=== PATIENT | female | born 2005 | race African-American/Black ===

== ENCOUNTER 2024-11-16 05:36 | Emergency (ER) | payer MEDICAID, SELFPAY ==
--- NOTE | ~2024-11-16 | XR_ITS ---
XR chest 2V Ordering provider: Santos Mckeon MD History: 18 years Female with . sob/ CHEST PAIN. . Comparison: None. FINDINGS: MEDIASTINUM: The cardiac silhouette is not enlarged. LUNGS: No infiltrates, effusions or pneumothorax. OTHER: No free air under the diaphragm. IMPRESSION: No acute cardiopulmonary pathology Reviewed, dictated and finalized at location A.
[2024-11-16 05:40] VITALS: BP 155/99; PULSE 62; RESP 17; TEMP 36.6; O2SAT 100
[2024-11-16 05:46] VITALS: O2SAT 99
--- NOTE | 2024-11-16 05:47 | ECG_ITS ---
Test Date: 2024-11-16 05:49:25 Measurements Intervals [place] Rate: 54 P: 73 LA: 147 QRS: 87 QRSD: 83 T: 65 QT: 390 QTc: 372 Interpretive Statements SINUS BRADYCARDIA BASELINE ARTIFACT- I, II, AVR, AVL, AVF, V1-V6 BORDERLINE ECG No previous ECG available for comparison Electronically Signed On 11-16-2024 07:46:40 CDT by Oscar Cardona D.O.
[2024-11-16 05:55] LABS: Basophils Absolute Auto 0.1 K/mm3 (0.0-0.1); Basophils Percent Auto 0.6 % (0.2-1.2); Eosinophils Absolute Auto 0.1 K/mm3 (0-0.3); Eosinophils Percent Auto 1.4 % (0-4.4); Hematocrit 39.3 % (37.0-47.0); Hemoglobin 13.3 g/dL (12.0-15.0); Immature Granulocyte Absolute 0.02 K/mm3 (0.00-0.031); Immature Granulocyte Percent A 0.2 % (0-0.5); Lymphocytes Absolute Auto 3.49 K/mm3 (0.9-3.2); Lymphocytes Percent Auto 41.4 % (18.3-44.2); Mean Corpuscular HGB Conc 33.8 g/dl (32-36); Mean Corpuscular Hemoglobin 26.4 pg (26-34); Mean Corpuscular Volume 78.1 fl (80-100); Mean Platelet Volume 9.6 fl (7.4-10.4); Monocytes Absolute Auto 0.9 K/mm3 (0.1-0.6); Monocytes Percent Auto 10.9 % (2.6-8.5); Neutrophils Absolute Auto 3.8 K/mm3 (1.3-6.7); Neutrophils Percent Auto 45.5 % (45.5-73.1); Platelet Count Result 284 k/mm3 (150-375); Red Blood Count 5.03 M/mm3 (4.2-5.4); Red Cell Distribution Width 14.8 % (11.5-14.5); White Blood Count 8.4 K/mm3 (4.5-10.0)
[2024-11-16 06:04] LABS: Alanine Aminotransferase 24 U/L (6-35); Albumin Level 4.4 g/dL (3.7-5.6); Alkaline Phosphatase 101 U/L (45-116); Anion Gap 9 mmol/L (4-12); Aspartate Amino Transferase 30 U/L (14-36); Bilirubin,Total 0.3 mg/dL (0.2-1.3); Blood Urea Nitrogen 8 mg/dL (8-21); Carbon Dioxide 25 mmol/L (22-30); Chloride 106 mmol/L (98-107); Estimated CRCL calculation 104 ml/min; Estimated Glomerular Filt Rate > 60; Glucose 91 mg/dL (65-110); Potassium 3.8 mmol/L (3.4-5.0); Sodium 140 mmol/L (134-143)
[2024-11-16 06:14] VITALS: BP 122/84; PULSE 54; RESP 16; O2SAT 100
--- OUTSIDE RECORDS SUMMARY | 2024-11-16 06:39 | XMS_ITS | Clinical Summary ---
Author Organization [facility] Address [address] [place] [address] Care Team Providers Care Cnc Maintenance Mechanic Name Role Phone Unavailable Primary Care Provider Unavailabl e Social History Tobacco Use Types Packs/Day Years Used Date Smoking Tobacco: Never Assessed Comments Unknown Sex and Gender Information Value Date Recorded Sex Assigned at Not on file Legal Sex Female 11:36 AM STITCH RUBBER Gender Identity Not on file Sexual Orientation Not on file Plan of Treatment Health Maintenance Due Date Last Done Comments Hepatitis C Virus (HCV) Screening 2004 Meningococcal B Immunization (2 of 2 - Bexsero SCDM 2-dose series) 07/27/2021 01/25/2021 Influenza Immunization (#1) 2024 07/05/2016 SARS-COV-2 Immunization ( season) 2024 02/02/2021, 01/12/2021 Respiratory Syncytial Virus (RSV) Immunization (Adult) (1 - 1-dose 75+ series) 12/13/2079 Hepatitis B Immunization Completed 005, 04/21/2005, 02/17/2005 Polio (IPV) Immunization Discontinued 005, 04/21/2005, 02/17/2005 Measles Mumps Rubella (MMR) Immunization Discontinued 12/14/2009, 03/12/2006 DTaP/Tdap/Td Immunization Discontinued 2015, 12/14/2009, 06/11/2006, Additional history exists Pneumococcal Immunization Combined Completed 05/01/2016, 12/10/2006, 05/11/2006, Additional history exists TdaP Immunization Completed 05/01/2016 Varicella Immunization Discontinued 05/01/2016, 2006 Human Papillomavirus (HPV) Immunization Completed 11/01/2016, 07/05/2016, 05/01/2016 Hepatitis A Immunization Discontinued 02/25/2019, 04/07 Meningococcal Immunization (ACWY) Completed 01/25/2021, 05/01/2016 Rotavirus Immunization Aged Out No lo nger eligible based on patient's age to complete this topic
--- OUTSIDE RECORDS SUMMARY | 2024-11-16 06:39 | XMS_ITS | Clinical Summary ---
Author Organization [facility] Address [address] [address] Care Team Providers Care Aeronautical Design Engineer Name Role Phone Bettina Cabrales MD Primary Care Provider [phone] Source Comments [facility],non-owned Affiliates and Associated Physician Practices is amultiple site organization consisting of ambulatory clinics and hospital sitesin [place], [place], [place] and [place]. This disclosure is being madepursuant to the Care Everywhere program and may not contain all information available regarding this patient. Last updated 18.[facility] Allergies No known active allergies Medications * Be aware that medications may not be up to date on this document. Alwaysverify current medications with the patient. medroxyPROGESTER one (Provera) 10 MG tablet Take 1 (one) tablet by mouth once daily for 7 days 07/05/2021 Active Active Problems Problem Noted Date Diagnosed Date Closed fracture of left radius and ulna 04/22/20 13 Immunizations Immunization Administration Dates Next Due Enel OGK-5 primary monoval ent 12+ yr 0.3mL Purple cap 02/02/2021,01/12/2021 DTaP VACCINE IM (6wk-6yrs) 12/14/2009,,06/23/2005,04/21,02/17/2005 HEP A PEDS 2 DOSE 02/25/2019,05/01/2016 HEP B VACCINE, PED/ADOL 06/23/2005,04/21/2005, HIB-HAEMOPHILUS INFLUENZAE B CONJUGATE VACCINE 06/11/2006,12/11/2005,04/21/2005,02/17 HIB-PRP-T 4 DOSE 11/01/2016 Human Papilloma Virus Nineva lent Vaccine 11/01/2016,07/05/2016,05/01/2016 INFLUENZA VACCINE, QUADR. (F LUZONE; FLULAVAL; FLUARIX; AFLURIA QUADRIVALENT; 6MO+), 0.5 ML (IIV4) 04/26/2023,06/06/2021,07/05/2016 MENINGOCOCCAL ACWY (MCV4P) VAC IM 01/25/2021, MMR 12/14/2009,03/12/2006 Meningococcal B Recombinant 2 Dose, IM 3,01/25/2021 PNEUMOCOCCAL PCV7 CONJ, PEDS 05/11/2006,03/12/20,02/17/2005 POLIO IPV 06/23/2005,04/21/2005,02/17/2005 POLIO,HISTORIC VACCINE 12/14/2009 Pneumococcal Pcv13 Conj 05/01/2016,12/10/2006 TDAP (7yrs+) 05/01/2016 VARICELLA 05/01/2016,12/10/2006 Family History Medical History Relation Name Comments High Cholesterol Father Diabetes; unknown type Maternal Grandfather None Known Mother Diabetes; unknown type Paternal Grandfather Relation Name Status Comments Father Maternal Grandfather Mother Paternal Grandfather Social History Tobacco Use Types Packs/Day Years Used Date Smoking Tobacco: Never Tobacco Cessation:Counseling Given: Not Answered Alcohol Use Standard Drinks/Week Comments No 0 (1 standard drink = 0.6 oz pur e alcohol) PHQ-2 Answer Date Recorded Patient Health Questionnaire-2 Score 2 09/14/2023 Comments No Sex and Gender Information Value Date Recorded Sex Assigned at Not on file Legal Sex Female 3:10 PM CDT Gender Identity Not on file Sexual Orientation Not on file Last Filed Vital Signs Vital Sign Reading Time Taken Comments Blood Pressure 118/64 04/26/2023 2:38 PM CDT Pulse 116 04/07/2013 1:00 AM CDT Temperature 36.4 C (97.5 F) 09/14/2023 9:36 AM PARKING LOT SIGNALER Respiratory Rate 19 04/07/2013 1:00 AM CDT Oxygen Saturation 99% 04/07/2013 1:00 AM CDT Inhaled Oxygen Concentration - - Weight 106.6 kg (235 lb) 09/14/2023 9:36 AM PARKING LOT SIGNALER Height 161.3 cm (5' 3.5 ) 04/26/2023 2:38 PM CDT Body Mass Index 40.98 04/26/2023 2:38 PM CDT Body Mass Index Percentile 99.15% 09/14/2023 9:3 6 AM PARKING LOT SIGNALER Growth Chart: [facility] (Girls, 2- 20 Years) Plan of Treatment Health Maintenance Due Date Last Done Comments HIV SCREENING 12/13/2019 CHLAMYDIA/GONORRHEA SCREENING 2020 HEPATITIS C SCREENING 12/08/2022 COVID-19 VACCINE (2023-2 5 season) 2024 08/19/2021, 02/02/2021, 01/12/2021 DEPRESSION SCREENING 08/06/2024 09/14/2023, 04/26/20 23 INFLUENZA VACCINE (Season Ended) 2025 04/26/2023, 06/06/2021, 07/05/2016 DTAP/TDAP/TD VACCINES (7 - T d or Tdap) 05/01/2026 05/01/2016, 12/14/2009, 06/11/2006, Additional history exists ZOSTER VACCINE (1 of 2) 2054 HEPATITIS B VACCINE Completed 06/23/2005, 04/21/2005, 02/17/2005 PNEUMOCOCCAL VACCINE Completed 05/01/2016, 12/10/2006, 05/11/2006, Additional history exists HIB VACCINE Completed 11/01/2016, 01/2006, 12/11/2005, Additional history exists HPV VACCINE Completed 11/01/2016, 06/08, 05/01/2016 MENINGOCOCCAL GROUPS A/C/Y/W VACCINE Completed 01/25/2021, 05/01/2016 MENINGOCOCCAL (Group B) VACC INE SHARED DECISION-MAKING Completed 04/26/2023, 01/25/2021 Goals Goal Patient Goal Type Associated Problems Recent Progress Patient-Stated? Author Use safety retraint in car Lifestyle On track( 021 2:40 PM CDT) Elli Donovan MA Insurance [facility] Care Teams Aeronautical Design Engineer Relationship Specialty Start Date End Date Bettina Cabrales MD [address] [place] [address] PCP - General Pediatrics 06/06/21
--- OUTSIDE RECORDS SUMMARY | 2024-11-16 06:39 | XMS_ITS | Clinical Summary ---
Author Organization [facility] Address [address] [place] [address] Care Team Providers Care Lead Fire Protection Engineer Name Role Phone Bettina Cabrales MD Primary Care Provider Benjamin Jewell MD Unavailable [phone] Brinda Cook PT Unavailable Unavailable Allergies No known active allergies Medications oxyCODONE (ROXICODONE) 5 mg immediate release tabletIndicatio ns:Pain Take 1 tablet (5 mg total) by mouth every 4 (four) hours as needed for pain 20 tablet 3 Active Additional Information Patient not taking.Reported on 10/11/2022 HYDROcodone-onelia taminophen (NORCO) 5-325 mg per tabletIndicatio ns:Pain Take 1-2 tablets by mouth every 4 (four) hours as needed for pain 20 tablet 3 Active Additional Information Patient not taking.Reported on 10/11/2022 ketorolac (TORADOL) 10 mg tabletIndicatio ns:Postoperativ e Acute Pain Take 1 tablet (10 mg total) by mouth every 6 (six) hours DO NOT TAKE or start ASPIRIN UNTIL DAY AFTER LAST DOSE OF TORADOL 12 tablet 3 Active Additional Information Patient not taking.Reported on 10/11/2022 senna (SENOKOT) 8.6 mg tablet Take 1 tablet by mouth 2 (two) times a day 60 tablet 3 Active aspirin 81 mg chewable tablet Take 1 tablet (81 mg total) by mouth 2 (two) times a day DO NOT take or start Aspirin until the next day after last dose of Toradol. (Post-operative DVT prophylaxis) 60 tablet 3 Active ondansetron (ZOFRAN) 4 mg tablet 2 Active Active Problems Problem Noted Date Diagnosed Date Sprain of anterior cruciate ligament of right kn ee 07/05/2022 Overview (07/05/2022): Added automatically from request for surgery [id number] Closed fracture of left radius and ulna 04/22/20 13 Immunizations Immunization Administration Dates Next Due DTaP 12/14/2009, 6,06/23/2005,04/21,02/17/2005 DTaP, Unspecified 12/14/2009 HPV9 11/01/2016,07/05/2016,05/01/2016 Hep A, Pediatric 02/25/2019,05/01/2016 Hep B, Adolescent or Pediatric 06/23/2005,2004,02/17/2005 HiB 06/11/2006, 6,04/21/2005,02/17 Hib (HbOC) 06/11/2006, 6,04/21/2005,02/17 Hib (PRP-T) 11/01/2016 IPV 06/23/2005,04/21/2005,02/17/2005 Influenza, Quadrivalent, Spl it, Preservative Free, Intramuscular 06/06/2021,07/05/2016 MMR 12/14/2009,03/12/2006 Meningococcal B, OMV (Bexsero) 01/25/2021 Meningococcal MCV4P (Menactra) 01/25/2021,2015 Pneumococcal Conjugate 7-Valent 05/11/2006,03/12,02/17/2005 Pneumococcal Conjugate PCV 13 05/01/2016, 007 Polio, Unspecified 12/14/2009 Tdap 05/01/2016 Varicella 05/01/2016,12/10/2006 Medical History Medical History Date Comments Obesity (BMI 30-39.9) Social History Tobacco Use Types Packs/Day Years Used Date Smoking Tobacco: Never Smokeless Tobacco: Never Tobacco Cessation:Counseling Given: Not Answered Personal Safety Answer Date Recorded Getting School Help Needed Denies 07/17 Comments Unknown Sex and Gender Information Value Date Recorded Sex Assigned at Not on file Legal Sex Female 7:31 PM CARPENTRY INSTRUCTOR Gender Identity Female 08/16/2022 7:07 AM CARPENTRY INSTRUCTOR Sexual Orientation Straight 08/16/2022 7: 07 AM CARPENTRY INSTRUCTOR Obstetrics History Growth Chart Information Age Height Weight Nixnag-sps-nfvu th Percentile BMI Percentile Head Circum Head Circum Percentile Date 16 years 162.5 cm (5' 3.98 ) 100.9 kg (222 lb 7.1 oz) 98.76%* 2022 16 years 163.8 cm (5' 4.5 ) 98 kg (216 lb 1.6 oz) 98.24%* 2021 * [facility] (Girls, 2-20 Years) Last Filed Vital Signs Vital Sign Reading Time Taken Comments Blood Pressure 147/93 08/14/2022 2:10 PM CARPENTRY INSTRUCTOR Pulse 103 08/14/2022 2:10 PM CARPENTRY INSTRUCTOR Temperature 36.7 C (98.1 F) 08/14/2022 1:06 PM CARPENTRY INSTRUCTOR Respiratory Rate 17 08/14/2022 2:10 PM CARPENTRY INSTRUCTOR Oxygen Saturation 99% 08/14/2022 2:10 PM CARPENTRY INSTRUCTOR Inhaled Oxygen Concentration - - Weight 100.9 kg (222 lb 7.1 oz) 08/14/2022 9:52 AM CARPENTRY INSTRUCTOR Height 162.5 cm (5' 3.98 ) 08/14/2022 9:52 AM CS T Body Mass Index 38.21 08/14/2022 9:52 AM CARPENTRY INSTRUCTOR Body Mass Index Percentile 98.76% 08/14/2022 9:5 2 AM CARPENTRY INSTRUCTOR Growth Chart: [facility] (Girls, 2- 20 Years) Plan of Treatment Health Maintenance Due Date Last Done Comments Depression Screening 2004 Hepatitis C Screening 2004 Regular Well Visit/Exam 18-64 2022 Covid-19 Vaccine (2023-2 5 season) 2024 08/19/2021, 02/02/2021, 01/12/2021 Influenza Vaccine (#1) 2024 3, 06/06/2021, 07/05/2016 DTaP/Tdap/Td Vaccine (7 - Td or Tdap) 05/01/2026 05/01/2016, 12/14/2009, 12/14/2009, Additional history exists Hepatitis B Screening Completed 06/23/2005 , 04/21/2005, 02/17/2005 Pneumococcal vaccine <65 Completed 016, 12/10/2006, 05/11/2006, Additional history exists Varicella Vaccines Completed 05/01/2016, 12/10/2006 HPV Vaccines Completed 11/01/2016, 06/08, 05/01/2016 Meningococcal Vaccine Completed 01/25/2021, 016 Meningococcal B Vaccine Completed 04/26/2023, 01/25 Medical Devices Implanted Type Area Market Gardener Device Identifier Shelf Expiration Date Model / Serial / Lot [employer] Endoscopy Screw 20mm 9mm 1.5mm Intfr Ti Cnn Rnd Hd Sft Thrd Crkscr Tip Softsilk Acl Pcl Strl [id number] - [id number] Implanted:Qty: 1 on 08/14/2022 by Benjamin Jewell MD at [facility] Right: Knee [employer] End[employer] 12/15/2026 [id number] / / [id number] [employer] End[employer] Softsilk 8mm 1.5mm 20mm Cannulated Round Acl Pcl Screw [id number] - [id number] Implanted:Qty: 1 on 08/14/2022 by Benjamin Jewell MD at [facility] Right: Knee [employer] 05/06/2027 [id number] / / [id number] Explanted Type Area Market Gardener Device Identifier Shelf Expiration Date Model / Serial / Lot [employer] Hua .062in 9in Trocar Point One End Orthopedic Wire [id number] - [id number] Explanted:Qty: 1 on 08/14/2022 by Benjamin Jewell MD at [facility] Right: Knee [employer] [id number] S / / Insurance [facility] Care Teams Lead Fire Protection Engineer Relationship Specialty Start Date End Date Bettina Cabrales MD [address] [facility] [address] [place] [address] PCP - General Pediatrics 06/19/22 Benjamin Jewell MD [address] [address] Surgeon Pediatric Orthopedic Surgery 08/14/22 Brinda Cook, PT Physical Therapist Physical Therapy 02/28/23
--- OUTSIDE RECORDS SUMMARY | 2024-11-16 06:39 | XMS_ITS | Data Portability ---
Author Organization [facility] [place] Address [address] [place] [address] Care Team Providers Care Appliance Repair Technician Name Role Phone ERLINDA ORNELAS Primary Care Provider [phone] Assessment Encounter Date Assessment Date Assessment LastModified by Organization Details LastModified Time 08/30/2021 08/30/2021 doing well so far. discussed adjustment period and irregular bleeding. WWE due Nov Not available 08/30/2021 16:36:47 Plan of Treatment Reminders Order Date Submit Date Provider Last Modified By Organization Details Last Modified Time Details Appointments MED CHECK 2024 09:15A Julius IYN MD Not available Not available Not available Lab test, urine 2024 025 [email or web address] [address], [address], [place], [address], 10/24/2024 11:02:14 test, urine 2022 023 [address], [address], [place], [address], 07/27/2023 10:19:33 17-hydrox [email or web address] jackson, serum 2022 023 [facility] (Lab), [address] [facility] [address], [place], [address], 09/19/2023 22:56:20 dhea-sulf ate, serum 2022 023 [facility] (Lab), [address], [place], [address], 09/19/2023 22:56:16 estradiol , serum 2022 023 [facility] (Lab), [address], [place], [address], 09/19/2023 22:56:16 FSH (follicle -stimulat ing hormone), serum 2022 023 [facility] (Lab), [address], [place], [address], 09/19/2023 22:56:18 HbA1c (hemoglob in A1c), blood 2022 023 [facility] (Lab), [address], [place], [address], 09/19/2023 22:56:19 lh (luteiniz ing hormone), serum 2022 023 [facility] (Lab), [address] [place], [address], 09/19/2023 22:56:17 progester one, serum 2022 023 [facility] (Lab), [address] [place], [address], 09/19/2023 22:56:17 prolactin , serum 2022 023 [facility] (Lab), [address] [place], [address], 09/19/2023 22:56:17 shbg (sex hormone-b inding globulin) , serum 2022 023 [facility] (Lab), [address] [place], [address], 09/19/2023 22:56:19 TSH, serum or plasma 2022 023 [facility] (Lab), [address], [place], [address], 09/19/2023 22:56:18 testoster one free/test osterone total, ratio, serum 2022 023 [facility] (Lab), [address], [place], [address], 09/19/2023 22:56:20 Referral None recorded. Procedures None recorded. Surgeries None recorded. Imaging None recorded. Medication Orders Mirena 21 mcg/24 hr (up to 8 years) 52 mg intrauter ine device 2024 025 [email or web address] Not available 10/24/2024 11:01:49 Provera 10 mg tablet 2024 025 [id number], [address], [place], [place], [id number], 10/24/2024 10:27:00 drospiren one 3 mg-ethiny l estradiol 0.02 mg tablet 2023 024 [facility] #[id number], [address] , [place], [place], [id number], 11/02/2023 12:53:46 drospiren one 3 mg-ethiny l estradiol 0.02 mg tablet 2022 023 Not available 10/30/2023 10:29:11 Patient TargetsNo targets recorded. Patient InstructionsNo instructions recorded. Reason for Referral None Reported. Results Created Date Observation Date Name Description Value Unit Range Abnormal Flag Note LastModifiedBy Organization Detail LastModifiedTime 07/27/2007/27/2023 pregn marivel test, urine HCG negati ve Not Available [address], [place], [address], 07/27/2023 10:15:23 09/14/19 24 09/14/2023 DHEA SULFA TE DHEA-sulfate 358 ug/dL Femal e Range s Age(y ) Range (ug/d L) 10-15 34-28 0 15-20 65-36 8 20-25 148-4 07 25-35 99-34 0 35-45 61-33 7 45-55 35-25 6 55-65 19-20 5 65-75 9-246 > 75 12-15 4 Not Available [facility] (Lab) [address], [place], [address], 09/19/2023 22:56:15 09/14/19 24 09/14/2023 ESTRA DIOL estradiol 47.3 pg/mL This assay was perfo rmed using [employer] ratio n reage nts and test kits. Value s obtai marisa with other assay metho ds or kits canno t be used inter [facility] . Femal e Estra diol Range s: Folli cular phase 12.4- 233 pg/mL Ovula tion phase 41.0- 398 pg/mL Lutea l phase 22.3- 341 pg/mL Postm enopa usal< 5-138 pg/mL Healt hy Pregn ant Women 1st Trime ster1 54-32 43 pg/mL 2nd Trime ster1 561-2 1280 pg/mL 3rd Trime ster8 525-> 31444 pg/mL Not Available [facility] (Lab) [address], [place], [address], 09/19/2023 22:56:16 09/14/19 24 09/14/2023 PROGE STERO NE progesterone 0.37 NG/mL This assay was perfo rmed using [employer] reage nts and test kits. Value s obtai marisa with other assay metho ds or kits canno t be used inter [facility] . Femal e Proge stero ne Range s: Folli cular phase 0.06- 0.89 ng/mL Ovula tion phase 0.12- 12.00 ng/mL Lutea l phase 1.83- 23.90 ng/mL Postm enopa usal< 0.05- 0.13 ng/mL Healt hy Pregn ant Women 1st Trime ster1 1.0-4 4.30 2nd Trime ster2 5.40- 83.30 3rd Trime ster5 8.70- 214.0 0 Not Available [facility] (Lab) [address] [place], [address], 09/19/2023 22:56:16 09/14/19 24 09/14/2023 PROLA CTIN prolactin, total 14.10 NG/mL 4.79-2 3.30 This assay was perfo rmed using [employer] ratio n reage nts and test kits. Value s obtai marisa with other assay metho ds or kits canno t be used inter [facility] eay . Not Available [facility] (Lab) [address] [place], [address], 09/19/2023 22:56:17 09/14/19 24 09/14/2023 LH (LUTE NIZIN G HORMO NE) LH 11.0 mIU/m L This assay was perfo rmed using [employer] reage nts and test kits. Value s obtai marisa with other assay metho ds or kits canno t be used inter [facility] eay . Femal es Mid-F ollic ular: 2.4-1 2.6 mIU/m L Mid-C ycle: 14.0- 95.6 mIU/m L Mid-L uteal : 1.0-1 1.4 mIU/m L Postm enopa use: 7.7-5 8.5 mIU/m L Not Available [facility] (Lab) [address] [place], [address], 09/19/2023 22:56:17 09/14/19 24 09/14/2023 FSH FSH 5.3 mIU/m L This assay was perfo rmed using [employer] n reage nts and test kits. Value s obtai marisa with other assay metho ds or kits canno t be used inter grande e[facility] . Femal es Folli cular : 3.5-1 2.5 mIU/m L Ovula tion: 4.7-2 1.5 mIU/m L Lutea l: 1.7-7 .7 mIU/m L Postm enopa use: 25.8- 134.8 mIU/m L Not Available [facility] (Lab) [address], [place], [address], 09/19/2023 22:56:18 09/14/19 24 09/14/2023 TSH, REFLE X FREE T4 TSH 1.91 uIU/m L 0.30-5 .33 Not Available [facility] (Lab) [address], [place], [address], 09/19/2023 22:56:18 09/14/19 24 09/14/2023 HUMAN SEX HORMO NE RICHELLE NG GLOBU BERTRAM sex hormone binding globulin 10.5 nmole s/L Not Available [facility] (Lab) [address], [place], [address], 09/19/2023 22:56:19 09/14/19 24 09/14/2023 HEMOG LOBIN A1C hemoglobin A1C 5.3 % 0-5.6 The Ameri can Diabe antonio Assoc iatio n recom mends that a prima ry goal of thera py shoul d be a HBA1C of < 7% and that physi cians shoul d reeva luate the treat ment regim en in patie nts with HBA1C value s consi stent ly > 8%. <5.7% Kassandra l 5.7 - 6.4% Incre ased risk for diabe antonio >=6.5 % Diagn ostic of diabe antonio <7.0% Goal of thera py >8.0% Actio n sugge sted Not Available [facility] (Lab) [address], [place], [address], 09/19/2023 22:56:19 09/14/19 24 09/14/2023 TESTO STERO NE, FREE( DIALY SIS) AND TOTAL (LC/M S/MS) testosterone , total 69 NG/dL 2-45 high For addit ional infor elmo go e refer to http: //gabo irizarryque stdia gnost ics.c om/fa q/ Total Testo stero neLCM SMSFA Q165 (This link is being provi ded for [facility] jatineleazar nal/ educa leandro l purpo ses only. ) This test was devel oped and its silvestre tical perfo rmanc e maryann cteri stics have been deter mined by [employer] [place], [place]. It has not been clear ed or appro sarah by the U.S. Food and Drug Admin istra tion. This assay has been valid ated pursu ant to the CLIA regul ation s and is used for clini aislinn purpo ses. Not Available [facility] (Lab) [address] [place], [address], 09/19/2023 22:56:20 09/14/19 24 09/14/2023 TESTO STERO NE, FREE( DIALY SIS) AND TOTAL (LC/M S/MS) testosterone , free 20.1 pg/mL 0.1-6. 4 high This test was devel oped and its silvestre tical perfo rmanc e maryann cteri stics have been deter mined by [employer] [place]. It has not been clear ed or appro sarah by the U.S. Food and Drug Admin istra tion. This assay has been valid ated pursu ant to the CLIA regul ation s and is used for clini aislinn purpo ses. Perfo rming Organ izati on [facility] n: Site ID: [id number] Name: [employer] shona s [employer] [place] Addre ss: [id number] [facility] [employer] [place], [place] Direc tor: Kashif Gonzáles MD PhD Not Available [facility] (Lab) [address] [place], [address], 09/19/2023 22:56:20 09/14/19 24 09/14/2023 17-OH PROGE STERO NE 17-hydroxypr ogesterone, lc/MS/MS 149 NG/dL Adult Femal e Refer ence Range s for 17-Hy droxy proge stero ne: Pre-M enopa usal Mid Folli cular : 23-10 2 ng/dL Pre-M enopa usal Surge : 67-34 9 ng/dL Pre-M enopa usal Mid Lutea l: 139-4 31 ng/dL Postm enopa usal Phase : < or = 45 ng/dL Pregn marivel: First Trime ster: 78-45 7 ng/dL Secon d Trime ster: 90-35 7 ng/dL Third Trime ster: 144-5 78 ng/dL This test was devel oped and its silvestre tical perfo rmanc e maryann cteri stics have been deter mined by [employer]. It has not been clear ed or appro sarah by FDA. This assay has been valid ated pursu ant to the CLIA regul ation s and is used for clini aislinn purpo ses. Perfo rming Organ izati on Infor mat n: Site ID: EZ Name: [employer] ostic s/[facility] trano , Addre ss: [id number] [facility] [place] [address] Dire tor: Mikki katz MD,Ph D,RUI Not Available [facility] (Lab) [address], [place], [address], 09/19/2023 22:56:20 10/25/19 25 10/24/2024 pregn marivel test, urine HCG negati ve Not Available [facility] [address], [place], [address], 10/24/2024 11:02:05 Result Notes None recorded. Problems Name Problem SNOMED Code Status Onset Date Resolution Date Notes Provider Name and Address Organization Details Recorded Time Childhood obesity 494638603 Active 2020 Prema Balderas MD [address], [place], [address], [facility] 15:32:48 Problem Notes None recorded. Procedures Surgical History Date Name Laterality Status Provider Name and Address Organization Details Recorded Time 10/25/19 25 IUD Insertion completed MARGARET YIN MD [address], [place], [address], , P[facility] 10/24/2024 10:45:57 07/27/20 23 IUD Removal completed SURYA Petty [address], [place], [address], , P[facility] 07/27/2023 12:28:56 07/27/20 21 IUD Insertion completed Prema Balderas MD [address], [place], [address], , P[facility] 07/27/2021 13:18:39 reconstruction of anterior cruciate ligament of knee joint completed Nu Gibbons [facility] 07/27/2023 09:56:03 Imaging Results None recorded. Procedure Notes None recorded. Medical Equipment None Reported. Allergies No known drug allergies Medications Name Sig Start Date Stop Date Status Note LastModified by Organization Details LastModified Time medroxyprog esterone 10 mg tablet TAKE 1 TABLET BY MOUTH EVERY DAY FOR 10 DAYS 10/24 completed Not Available Not Available Not Available Mirena 21 mcg/24 hr (up to 8 years) 52 mg intrauterin e device Take 1 device by intrauter ine route. 2024 active Not Available Not Available Not Avai lable hydrocodone 5 mg-acetamin ophen 325 mg tablet 07/27 completed Not Available Not Available Not Available senna 8.6 mg tablet 07/27 completed Not Available Not Available Not Available ondansetron HCl 4 mg tablet 07/27 completed Not Available Not Available Not Available ketorolac 10 mg tablet 07/27 completed Not Available Not Available Not Available aspirin 81 mg chewable tablet 07/27 completed Not Available Not Available Not Available oxycodone 5 mg tablet 07/27 completed Not Available Not Available Not Available drospirenon e 3 mg-ethinyl estradiol 0.02 mg tablet TAKE 1 TABLET BY MOUTH EVERY DAY 09/15 completed Not Available Not Available Not Available Vitals Date Recorded Body height Body mass index (BMI) Percentile per age and sex Body mass index (BMI) Body weight Systolic blood pressure Diastolic blood pressure Provider Name and Address Organization Details Last Updated DateTime 2 160.02 cm 99 % 37.4 kg/m2 26202.9 9 g 117 mm[Hg] 75 mm[Hg] Colleen Thornton [facility] 2 15:54:38 Date Recorded Body weight Systolic blood pressure Diastolic blood pressure Provider Name and Address Organization Details Last Updated DateTime 07/27/2023 363341.47 g 122 mm[Hg] 73 mm[Hg] Nu Castellonse [facility] 07/27/2023 09:53:33 Date Recorded Body weight Body mass index (BMI) Body mass index (BMI) Percentile per age and sex Body height Systolic blood pressure Diastolic blood pressure Provider Name and Address Organization Details Last Updated DateTime 4 726292. 65 g 40.6 kg/m2 99.03 % 160.02 cm 136 mm[Hg] 85 mm[Hg] Valarie Magdaleno [facility] 4 12:12:24 Date Recorded Body height Body mass index (BMI) Body mass index (BMI) Percentile per age and sex Body weight Systolic blood pressure Diastolic blood pressure Provider Name and Address Organization Details Last Updated DateTime 5 160.02 cm 43.2 kg/m2 99.33 % 166901. 54 g 124 mm[Hg] 83 mm[Hg] Jazzmine [facility] 5 16:31:21 Date Recorded Body height Body mass index (BMI) Percentile per age and sex Body mass index (BMI) Body weight Systolic blood pressure Diastolic blood pressure Provider Name and Address Organization Details Last Updated DateTime 5 160.02 cm 99.38 % 43.6 kg/m2 864557. 72 g 124 mm[Hg] 75 mm[Hg] Jazzmine [place] [facility] 5 10:26:31 Social History Question Answer Notes LastModified by Organizat ion Details LastModified Time Tobacco Smoking Status Never Smoker Yassine Altman [facility] 07/27/2021 09:27:43 What Is Your Level Of Alcohol Consumption? None Information not available 07/04/2021 Are You Blind Or Do You Have Difficulty Seeing? No Information n ot available 07/27/2023 In The 14 Days Before Symptom Onset, Have You Had Close Contact With A Laboratory-confirm ed COVID-19 While That Case Was Ill? No Information n ot available 11/01/2023 In The 14 Days Before Symptom Onset, Have You Had Close Contact With A Person Who Is Under Investigation For COVID-19 While That Person Was Ill? No Information not available 11/01/2023 Have You Been To An Area Known To Be High Risk For COVID-19? No Information not available 11/01/2023 Are You Deaf Or Do You Have Serious Difficulty Hearing? No Information not available 07/27/2023 Do You Use Any Illicit Or Recreational Drugs? No Information not available 07/04/2021 Has Tobacco Cessation Counseling Been Provided? No [email or web address] Information not available 07/27/2021 Do You Or Have You Ever Used Any Other Forms Of Tobacco Or Nicotine? No [email or web address] Information not available 07/27/2021 Sex: Unknown Functional Status Question Answer Note LastModified by [email or web address] Details LastModified Time Do you have difficulty walking or climbing stairs? No Information not available 07/27/2023 Are you able to walk? YESWOREST Information not available 07/27/2023 Are you able to care for yourself? Yes Information not available 07/27/2023 Do you have difficulty dressing or bathing? No Information not available 07/27/2023 Mental Status None recorded. Family History Relationship Description Onset Age of this Age Resolved Age Notes LastModified by Organization Details LastModified Time Father Hypercholest erolemia [email or web address] Not available 2020 15:23:25 Maternal Grandmother Hypercholest erolemia [email or web address] Not available 2020 15:23:25 Maternal Grandfather Diabetes mellitus [email or web address] Not available 2020 15:23:35 Paternal Grandfather Diabetes mellitus [email or web address] Not available 2020 15:23:35 Medical History Condition Response Allergies (Food, seasonal, environmental ) N Other N Drug/Latex Allergies/Reactions N Breast Cancer N Blood Transfusion N Dermatologic Disorders N Lung Disease N Defects or Inherited Disease N Breast Problem N Gestational Diabetes N Hematologic disorders N Anesthesia Complications N History of STI N Deep Vein Thrombosis N Polycystic ovary syndrome N Anxiety Disorder N Autoimmune disease N Arthritis N Infertility N Polyps N Acid Reflux (GERD) N History of abnormal pap N Cancer N Stroke N Varicosities N Neurologic/Epilepsy N Endometriosis N High Cholesterol N Fibromyalgia N Headaches N Kidney Disease N Heart Problems N Thyroid Problems N Kidney or Bladder Problems N GI Problems N Eating Disorder N Anemia N Art (IVF or FET) N Psychiatric Illness N Ovarian Cancer N Diabetes N Pulmonary (TB, Asthma) N Hepatitis/Liver Disease N No Past Medical History Y Eczema N Urinary Tract Infection N Abuse/Domestic Violence N Asthma N Trauma/Violence N Depression/ depression N Heart Disease N Pre-Eclampsia N Hypertension N Osteoporosis N Thrombophilias N Gynecological History Statement/Question Response Flow Moderate Date of LMP 10/21/2024 Was last menstrual period normal Y STIs/STDs Y HPV Vaccine Y Current Control Method None Are cycles usually normal Y Sexually Active? Y Menses Monthly N Age of first menstrual cycle 13 Date of Last Pap Smear Sexual Problems? N Desired Control Method IUD LMP Approximate Obstetrics History GPAL:G 0 P 0 0 0 0 Past Encounters Encounter ID Performer Location Encounter Start Date Encounter Closed Date Diagnosis/Indication Diagnosis SNOMED-CT Code Diagnosis ICD10 Code Diagnosis Note [id number] Prema Balderas MD [facility] [address] [address] 07/04/2021 15:13:11 07/05/2021 10:41:10 Primary oligomenorrhea 41461345 N91.3 Polycystic ovary syndrome 986553087 E28.2 Hirsutism 562520949 L68. 0 Constipation 02584965 K5 9.00 Childhood obesity 828110 003 Z68.54 [id number] Prema Balderas MD [facility] [address] [address] 07/27/2021 09:27:32 07/27/2021 13:33:55 Contraception care management 536966027 Z30.9 Insertion of intrauterine contraceptive device 53094839 Z30.430 [id number] Prema Balderas MD [facility] [address],[place] [address] 08/30/2021 15:36:17 08/30/2021 16:42:09 Intrauterine contraceptive device in situ 344748617 Z97.5 Polycystic ovary syndrome 816921251 E28.2 [id number] Cammy Sahu [facility] [address],[place] [address] 07/27/2023 09:42:24 07/27/2023 12:34:46 Irregular periods 80323825 N92.6 Discussed PCOS in-depthla bs ordereddes ires IUD removal, IUD removedall alternativ e BC options discussed, would like to start OCP (r/b/a reviewed). Rx sent. Consent reviewed and signed.med check in 4 months recommende d Time spent in visit is a total of 40 mins with at least 50% of visit consisting of counseling and review of plan of care. Contracept ion care management 344188954 Z30.9 Removal of intrauterine contraceptive device 5654150141 Z30.432 Polycystic ovary syndrome 464013199 E28.2 [id number] Cammy Sahu [place] [address] [address] 11/02/2023 12:08:58 11/02/2023 13:02:49 Contraception care management 814435289 Z30.9 Polycystic ovary syndrome 266812804 E28.2 We discussed polycystic ovarian syndrome. We discussed the diagnosis. We discussed the underlying disease process. We discussed laboratory evaluation . We discussed her laboratory results. We discussed the prevention of endometria l cancer. We discussed protecting the endometriu m and how that is carried out. We discussed the risk associated with PCOS and long-term health outcomes. Discussed all control options in great detail. Pt would like to start ocp. She is aware of the risks and benefits. She does not have any medical condition that is contraindi cated with the use of estrogen containing control. Pt will start her pills on the first day following the start of her period. She is aware it is not effective for control the first month. She is also aware of the importance of taking at the same time every day. Encouraged use of condoms as the pill does not protect against STD's. Will return in 3 months for med check.. Pt verbalized understand ing.rx sent, med check in 4 months Time spent in visit is a total of 25 mins with at least 50% of visit consisting of counseling and review of plan of care. [id number] MARGARET YIN MD [facility] [address] [address] 09/15/2024 16:24:02 09/15/2024 16:59:00 Oligomenorrhea 60587484 N91.5 - patient reports hx of PCOS, has not had cycle in 1 year- discussed PCOS and endometria l hyperplasi a, importance of menstrual suppressio n or regular cycle induction- patient desires IUD placement- will plan for withdrawal bleed prior to IUD placement, provera sent- patient not currently sexually active; will place IUD after withdrawal bleed starts Polycystic ovary syndrome 444278641 E28.2 [id number] Jazzmine Mckinley [facility] [address] [address] 10/24/2024 10:00:57 10/24/2024 10:55:14 Contraception care management 172083743 Z30.9 - Mirena IUD placed without issue- due for removal 10/2032- rtc 4 weeks for string check Contraception care 11297 5005 Z30.40 Screening procedure 2012 5006 Z13.9 Health Concerns Section Related Observation LastModified by Organization Detai ls LastModified Time None Recorded Concern Status LastModified by Organization Details LastModified Time None Recorded Advance Directives Directive None Recorded Payers Encounter Date Sequence Insurance Name Policy Number Policy Yen Covered Member ID Yen Member ID Guarantor Name 08/30/2021 1 [facility] (MEDICAID HMO) [id number] Judy Morfin [id number] Judy Morfin 07/27/2023 1 [facility] (MEDICAID HMO) [id number] Judy Morfin [id number] Judy Morfin 11/02/2023 1 [facility] (MEDICAID HMO) [id number] Judy Morfin [id number] Judy Morfin 09/15/2024 1 [facility] ([facility]) [id number] Judy Morfin [id number] Judy Morfin 10/24/2024 1 [facility] ([facility]) [id number] Judy Morfin [id number] Judy Morfin Notes Date Note Type Note Provider Name and Address Organization Details Recorded Time 08/30/2021 text/html Patient is a 15y o G0 here for IUD check. Mirena IUD placed a month ago. No fever or unusual discharge. She reports being able to feel her string. Period lasted for 2 weeks but was light. She feels less tense on it but feels thirsty all the time. Prema Balderas MD [address], [place], [address], , P[facility] 08/30/2021 16:37:09 07/27/2023 text/html 17yo [id number] to discuss BCmirena IUD currently - inserted 07/2021. Minimal periods with IUDwould like IUD removed today and would like to discuss other methods. Last SA 3 months agoprior to IUD periods very irregular, often skip months/long intervals between. Thought to have PCOS, has not had any labs done and would like labs done.unwanted hair growth on chin/neckdenies hx of DVT/PE, HTN, Stroke/[place], cancer, liver disease, or migraine with aura SURYA Petty [address], [place], [address], , [facility] 07/27/2023 12:32:25 11/02/2023 text/html 17yopresents for med checknever started OCPwants to discuss starting thisdenies h/o DVT/PE, HTN, Stroke/[place], cancer, liver disease, or migraine with aura in nursing school, very stressed right now. Semester almost over. Denies depression/anxiet y. Denies ever thoughts of harming self or others. SURYA Petty 2016 Al[facility] Jackson, [place], [address], , P[facility] 11/02/2023 12:56:38 09/15/2024 text/html Patient presents for control consult. Was previously on Mirena IUD, had it removed as she wanted to work on controlling PCOS symptoms naturally . Was prescribed OCPs however did not start them. Would like to restart Mirena IUD. Has not had a period since IUD removal in 2022. MARGARET YIN MD [address], [place], [address], , [facility] 09/15/2024 16:57:55 10/24/2024 text/html Patient presents for IUD insertion. R/b/a previously discussed with patient. [facility] ortiz, [facility] 10/24/2024 11:02:33 OBGyn Episode No OBEpisode recorded.
--- OUTSIDE RECORDS SUMMARY | 2024-11-16 06:39 | XMS_ITS | Clinical Summary ---
Author Organization [facility] Address [address] [place] [address] Care Team Providers Care Seed And Fertilizer Specialist Name Role Phone Bettina Cabrales MD Primary Care Provider [phone] Medications No known medications Social History Tobacco Use Types Packs/Day Years Used Date Smoking Tobacco: Never Assessed Comments Unknown Sex and Gender Information Value Date Recorded Sex Assigned at Not on file Legal Sex Female 2:40 PM CDT Gender Identity Not on file Sexual Orientation Not on file Plan of Treatment Health Maintenance Due Date Last Done Comments Annual Physical 12/13/2007 Meningococcal B Vaccine (2 of 2 - Bexsero SCDM 2-dose series) 07/27/2021 01/25/2021 Hepatitis C 2022 COVID-19 Vaccine ( season) 2024 02/02/2021, 01/12/2021 DTaP, Tdap and Td Vaccines (7 - Td or Tdap) 05/01/2026 05/01/2016, 12/14/2009, 12/14/2009, Additional history exists Hepatitis B Vaccines Completed 06/23/2005, 04/21/2005, 02/17/2005 Pneumococcal Vaccine: Pediatrics (0 to 5 Years) and At-Risk Patients (6 to 49 Years) Completed 05/01/2016, 12/10/2006, 05/11/2006, Additional history exists HPV Vaccines Completed 11/01/2016, 06/08, 05/01/2016 Meningococcal Vaccine Completed 01/25/2021, 016 RSV Immunizations Under 20 Months Aged Out No longer eligible based on patient's age to complete this topic Insurance MARITA Care Teams Seed And Fertilizer Specialist Relationship Specialty Start Date End Date Bettina Cabrales MD [address] [place] [address] PCP - General PEDIATRICS 07/06/21
--- OUTSIDE RECORDS SUMMARY | 2024-11-16 06:39 | XMS_ITS | Referral Summary ---
Author Organization [facility] Address [address] [place] [address] Care Team Providers Care Emergency Detail Driver Name Role Phone Bettina Cabrales MD Primary Care Provider Benjamin Jewell MD Unavailable [phone] Brinda Cook PT Unavailable Unavailable Allergies No [...] (07/05/2022): Added automatically from request for surgery [id number] Closed fracture of left radius and ulna [...] Polio, Unspecified 12/14/2009 Tdap 05/01/2016 Varicella 05/01/2016,12/10/2006 Social History Tobacco Use Types Packs/Day Years Used Date Smoking Tobacco: Never Smokeless Tobacco: Never Tobacco Cessation:Counseling Given: Not Answered Personal Safety Answer Date Recorded Getting School Help Needed Denies 07/17 Comments Unknown Sex and Gender Information Value Date Recorded Sex Assigned at Not on file Legal Sex Female 7:31 PM SOIL TESTER Gender Identity Female 08/16/2022 7:07 AM SOIL TESTER Sexual Orientation Straight 08/16/2022 7: 07 AM SOIL TESTER Last Filed Vital Signs Vital Sign Reading Time Taken Comments Blood Pressure 147/93 08/14/2022 2:10 PM SOIL TESTER Pulse 103 08/14/2022 2:10 PM SOIL TESTER Temperature 36.7 C (98.1 F) 08/14/2022 1:06 PM SOIL TESTER Respiratory Rate 17 08/14/2022 2:10 PM SOIL TESTER Oxygen Saturation 99% 08/14/2022 2:10 PM SOIL TESTER Inhaled Oxygen Concentration - - Weight 100.9 kg (222 lb 7.1 oz) 08/14/2022 9:52 AM SOIL TESTER Height 162.5 cm (5' 3.98 ) 08/14/2022 9:52 AM CS T Body Mass Index 38.21 08/14/2022 9:52 AM SOIL TESTER Body Mass Index Percentile 98.76% 08/14/2022 9:5 2 AM SOIL TESTER Growth Chart: [facility] (Girls, 2- 20 Years) Plan of Treatment Not on file Medical Devices Implanted Type Area Internal Controls Manager Device Identifier Shelf Expiration Date Model / Serial / Lot [employer]ena [employer] Nephew Endoscopy Screw 20mm 9mm 1.5mm Intfr Ti Cnn Rnd Hd Sft Thrd Crkscr Tip Softsilk Acl Pcl Strl [id number] - [id number] Implanted:Qty: 1 on 08/14/2022 by Benjamin Jewell MD at [facility] Right: Knee [employer]hew Endoscopy 12/15/2026 [id number] / / [id number] [employer]hew Endoscopy Softsilk 8mm 1.5mm 20mm Cannulated Round Acl Pcl Screw [id number] - [id number] Implanted:Qty: 1 on 08/14/2022 by Benjamin Jewell MD at [facility] Right: Knee [employer] Endoscopy 05/06/2027 [id number] / / [id number] Explanted Type Area Internal Controls Manager Device Identifier Shelf Expiration Date Model / Serial / Lot [employer] Hua .062in 9in Trocar Point One End Orthopedic Wire [id number] - [id number] Explanted:Qty: 1 on 08/14/2022 by Benjamin Jewell MD at [facility] Right: Knee [employer] [id number] S / / Insurance [facility] Care Teams Emergency Detail Driver Relationship Specialty Start Date End Date Bettina Cabrales MD [address] [place] [id number] PCP - General Pediatrics 06/19/22 Benjamin Jewell MD [address] [address] Surgeon Pediatric Orthopedic Surgery 08/14/22 Brinda Cook, PT Physical Therapist Physical Therapy 02/28/23
[2024-11-16 06:55] VITALS: BP 127/88; PULSE 52; RESP 17; O2SAT 98
[2024-11-16 07:23] VITALS: BP 125/74; PULSE 56; RESP 19; O2SAT 100
[2024-11-16 08:05] LABS: Troponin I < 0.012 ng/mL (0.000-0.034)
--- NOTE | 2024-11-16 08:39 | ECG_ITS ---
Test Date: 2024-11-16 08:52:56 Measurements Intervals [place] Rate: 48 P: 41 CT: 149 QRS: 84 QRSD: 91 T: 69 QT: 418 QTc: 375 Interpretive Statements SINUS BRADYCARDIA EARLY PRECORDIAL R/S TRANSITION MINIMAL Q WAVES- INFERIOR LEADS ABNORMAL ECG Compared to ECG 11/16/2024 05:49:25 HEART RATE HAS DECREASED Electronically Signed On 11-16-2024 14:41:16 CDT by Oscar Cardona D.O.
[2024-11-16 08:42] LABS: Amphetamine Screen Urine Negative (Negative); Barbiturate Screen Urine Negative (Negative); Benzodiazepines Screen Urine Negative (Negative); Cannabinoid Screen Urine Negative (Negative); Cocaine Screen Urine Negative (Negative); Methadone Screen Urine Negative (Negative); Opiate Screen Urine Negative (Negative); Phencyclidine Screen Urine Negative (Negative)
[2024-11-16 09:11] LABS: Troponin I < 0.012 ng/mL (0.000-0.034)
--- NOTE | 2024-11-16 10:26 | ED_ITS ---
HPI - General Adult General Chief complaint: Shortness of Breath/Dyspnea Stated complaint: sob Time Seen by Provider: 11/16/24 07:00 History of Present Illness HPI narrative: This is a 18-year-old female presenting ED with chief complaint of chest pain. Patient says that she woke up with a nose bleed. She then developed chest tightness shortness of breath and a feeling that something was wrong. Symptoms have now resolved without intervention. The nosebleed has resolved. She does not currently have any chest pain, fevers productive cough diaphoresis nausea vomiting. Patient is a nursing faculty. She is very concerned that she is having a heart attack Related Data Allergies Allergy/AdvReac Type Severity Reaction Status Date / Time No Known Allergies Allergy Verified 11/16/24 05:37 Exam 2 Narrative: APPEARANCE: No apparent distress. Well-appearing Head: atraumatic. EYES: EOMI, NOSE: Atraumatic NECK: Trachea midline RESPIRATORY: No increased rate of breathing clear to auscultation CARDIOVASCULAR: RRR, no peripheral edema ABDOMINAL: Non-distended nontender MUSCULOSKELETAl: No obvious deformities NEURO: Alert. Moving 4/4 extremities SKIN:: Warm, dry. Normal color PSYCHIATRIC: Normal affect Course Vital Signs Vital signs: Vital Signs Temperature 97.8 F 11/16/24 05:40 Pulse Rate 62 11/16/24 05:40 Respiratory Rate 17 11/16/24 05:40 Blood Pressure 155/99 H 11/16/24 05:40 Pulse Oximetry 100 11/16/24 05:40 Oxygen Delivery Room Air 11/16/24 05:40 Temperature 97.8 F 11/16/24 05:40 Pulse Rate 56 L 11/16/24 07:23 Respiratory Rate 19 11/16/24 07:23 Blood Pressure 125/74 11/16/24 07:23 Pulse Oximetry 100 11/16/24 07:23 Oxygen Delivery Room Air 11/16/24 05:46 Medical Decision Making MDM Narrative Medical decision making narrative: -Course: 18-year-old female presenting with a brief episode of chest tightness and shortness of breath after waking but nosebleed. She is currently asymptomatic. She is concerned that she had a heart attack however a chest pain workup was performed which was completely negative. Perc negative. Patient has been resting comfortably in our ED with no other symptoms. She will be discharged follow-up with primary physician for further management. Given return precautions. -DDX includes but is not limited to: Anxiety, ACS, pneumonia, PE Independent EKG interpretation: Rhythm [sinus], Rate [54], [place] -[normal], NC -[normal], QRS [narrow], QTC [normal], T waves -[negative for concerning inversions], ST Segments - [Negative for concerning elevations] Final interpretations: Sinus bradycardia Vital Signs Vital Signs: Vital Signs Temperature 97.8 F 11/16/24 05:40 Pulse Rate 62 11/16/24 05:40 Respiratory Rate 17 11/16/24 05:40 Blood Pressure 155/99 H 11/16/24 05:40 Pulse Oximetry 100 11/16/24 05:40 Oxygen Delivery Room Air 11/16/24 05:40 Temperature 97.8 F 11/16/24 05:40 Pulse Rate 56 L 11/16/24 07:23 Respiratory Rate 19 11/16/24 07:23 Blood Pressure 125/74 11/16/24 07:23 Pulse Oximetry 100 11/16/24 07:23 Oxygen Delivery Room Air 11/16/24 05:46 Lab Data 11/16/24 05:48 11/16/24 05:48 Labs: Lab Results 11/16/24 11/16/24 11/16/24 Range/Units 05:48 07:55 08:36 WBC 8.4 (4.5-10.0) K/mm3 RBC 5.03 (4.2-5.4) M/mm3 Hgb 13.3 (12.0-15.0) g/dL Hct 39.3 (37.0-47.0) % MCV 78.1 L (80-100) fl MCH 26.4 (26-34) pg MCHC 33.8 (32-36) g/dl RDW 14.8 H (11.5-14.5) % Plt Count 284 (150-375) k/mm3 MPV 9.6 (7.4-10.4) fl Immature Gran % (Auto) 0.2 (0-0.5) % Neut % (Auto) 45.5 (45.5-73.1) % Lymph % (Auto) 41.4 (18.3-44.2) % [place] % (Auto) 10.9 H (2.6-8.5) % Eos % (Auto) 1.4 (0-4.4) % Baso % (Auto) 0.6 (0.2-1.2) % Lymph # (Auto) 3.49 H (0.9-3.2) K/mm3 [place] # (Auto) 0.9 H (0.1-0.6) K/mm3 Eos # (Auto) 0.1 (0-0.3) K/mm3 Baso # (Auto) 0.1 (0.0-0.1) K/mm3 Abs Immat Gran (auto) 0.02 (0.00-0.031) K/mm3 Absolute Neuts (auto) 3.8 (1.3-6.7) K/mm3 Absolute Nucleated RBC 0.000 (0.0-0.012) K/mm3 Nucleated RBC % 0.0 (0.0-0.2) % Sodium 140 (134-143) mmol/L Potassium 3.8 (3.4-5.0) mmol/L Chloride 106 (98-107) mmol/L Carbon Dioxide 25 (22-30) mmol/L Anion Gap 9 (4-12) mmol/L BUN 8 (8-21) mg/dL Creatinine 0.92 (0.7-1.0) mg/dL Estim Creat Clear Calc 104 ml/min Estimated GFR > 60 (59 - ) Glucose 91 (65-110) mg/dL Calcium 9.0 (8.9-10.7) mg/dL Total Bilirubin 0.3 (0.2-1.3) mg/dL AST 30 (14-36) U/L ALT 24 (6-35) U/L Alkaline Phosphatase 101 (45-116) U/L Troponin I < 0.012 < 0.012 (0.000-0.034) ng/mL Total Protein 8.0 (6.3-8.6) g/dL Albumin 4.4 (3.7-5.6) g/dL TSH (Reflex) 2.810 (0.465-4.68) uIU/mL Urine Opiates Screen Negative (Negative) Urine Methadone Screen Negative (Negative) Ur Barbiturates Screen Negative (Negative) Ur Phencyclidine Scrn Negative (Negative) Ur Amphetamine Screen Negative (Negative) U Benzodiazepines Scrn Negative (Negative) Urine Cocaine Screen Negative (Negative) U Cannabinoids Screen Negative (Negative) Discharge Plan Discharge Clinical Impression: Atypical chest pain Patient Disposition: Home Condition: Stable Instructions: Antibiotic Form, Chest Pain (DC) Additional Instructions: You were seen emergency department for chest pain. Thankfully your workup was negative. Please follow-up with your primary care physician further management. If you develop any new or worsening symptoms please return to the ED for re- evaluation. Patient Language: Thai Follow-up/Referrals: PHYSICIAN,UNDERWATER TRAPPER [Primary Care Provider] -
[2024-11-16 10:40] VITALS: BP 116/80; PULSE 72; RESP 16; O2SAT 99
== END 2024-11-16 10:40 | disposition home or self-care (01) ==
PROVIDERS: Emergency Medicine; Emergency Provider Emergency Medicine
DX: R07.89 Other chest pain (principal); R00.1 Bradycardia, unspecified
CPT/HCPCS: 36415; 71046; 80053; 80307; 84443; 84484; 85025; 93005; 99284

== ENCOUNTER 2025-04-07 22:51 | Emergency (ER) | payer BC, SELFPAY ==
--- NOTE | ~2025-04-07 | XR_ITS ---
EXAMINATION: XR knee LT min 4V DATE: 04/07/2025 23:34 INDICATION: Left knee pain post twisting injury with palpable pop TECHNIQUE: Anteroposterior, 2 oblique and crosstable lateral views of the left knee were obtained COMPARISON: None. FINDINGS: Alignment is normal. No fracture. Joint spaces are normal. No joint effusion/layering lipohemarthrosis. Soft tissues are unremarkable. IMPRESSION: 1. Normal left knee radiographs. Reviewed, dictated and finalized at location A.
[2025-04-07 22:54] VITALS: BP 131/86; PULSE 102; RESP 18; TEMP 36.4; O2SAT 99
--- NOTE | 2025-04-08 00:27 | ED.LOWEXIN ---
HPI - Extremity Injury (Lower) General Chief Complaint: Extremity Injury, Lower Stated Complaint: L knee injury when dancing Time Seen by Provider: 04/08/25 00:05 History of Present Illness HPI Narrative: 19-year-old female presents emergency department for left knee pain after an injury that occurred an hour prior to arrival. Patient states she was dancing when she twisted her knee. She is reporting pain to the lateral knee since that is worse with flexion and ambulation. She has not noticed any swelling. She is not taking anything for the pain. No other injuries. Related Data Allergies Allergy/AdvReac Type Severity Reaction Status Date / Time No Known Allergies Allergy Verified 11/16/24 05:37 Review of Systems Review of Systems: All systems reviewed & are unremarkable except as noted in HPI and below Exam Narrative: GENERAL: Well-appearing, well-nourished, and in no acute distress. HEAD: Normocephalic, atraumatic. EYES: EOMI. ENT: Nares clear, no rhinorrhea or epistaxis. Mucous membranes moist. NECK: Supple. CHEST: Clear to auscultation. No respiratory distress. HEART: Regular rate and rhythm. No murmur heard. Normal peripheral pulses. EXTREMITIES: LLE: No obvious deformity, edema, ecchymosis, warmth or erythema. No significant tenderness to palpation. Full active and passive range of motion without difficulty. No laxity with varus or valgus stress. Negative anterior posterior drawer. No tenderness remainder of extremity. DP pulses 2+. Sensation intact. SKIN: Warm, dry, no rash. NEURO: No focal deficits. Alert and oriented x3 Course Vital Signs Vital signs: Vital Signs Temperature 97.5 F L 04/07/25 22:54 Pulse Rate 102 H 04/07/25 22:54 Respiratory Rate 18 04/07/25 22:54 Blood Pressure 131/86 04/07/25 22:54 Pulse Oximetry 99 04/07/25 22:54 Oxygen Delivery Room Air 04/07/25 22:54 Temperature 97.5 F L 04/07/25 22:54 Pulse Rate 102 H 04/07/25 22:54 Respiratory Rate 18 04/07/25 22:54 Blood Pressure 131/86 04/07/25 22:54 Pulse Oximetry 99 04/07/25 22:54 Oxygen Delivery Room Air 04/07/25 22:54 MDM - Extremity Injury (Lower) MDM Narrative Medical decision making narrative: 19-year-old female presents emergency department for left knee pain after twisting her knee while dancing 1 hour prior to arrival. Vitals with mild tachycardia 102, otherwise unremarkable. Patient is afebrile and nontoxic appearing. Exam is notable for the above. X-ray shows no acute osseous abnormality. Patient updated on results. Received ibuprofen with improvement. She is placed in knee immobilizer provided crutches and a prescription for ibuprofen as well as orthopedic follow-up. She was given strict ED return precautions. She is agreeable with the plan verbalized understanding. Discharged in stable condition. Discharge Plan Discharge Clinical Impression: Knee sprain Qualifiers: Encounter type: initial encounter Involved ligament of knee: unspecified ligament Laterality: left Qualified Code(s): S83.92XA - Sprain of unspecified site of left knee, initial encounter Patient Disposition: Home Condition: Stable Instructions: Antibiotic Form, Knee Sprain (DC) Additional Instructions: Please take the anti-inflammatories as directed. Rest, ice, elevate and keep her knee compressed. Follow-up with orthopedist. Return to the emergency department if you develop any new or worsening symptoms. Patient Language: Slovenian Prescriptions: New ibuprofen 800 mg tablet 800 mg PO TID PRN (Reason: pain) Qty: 20 0RF Follow-up/Referrals: PHYSICIAN NOT ON STAFF,NONSTAFF [Primary Care Provider] Amaury Fagan MD [Physician, Orthopedics]
[2025-04-08] MEDS: IBUPROFEN 400 MG TABLET 800 MG PO (00:35)
--- OUTSIDE RECORDS SUMMARY | 2025-04-08 00:44 | XMS_ITS | Clinical Summary ---
Author Organization [facility] Address [address] [place] [address] Care Team Providers Care Senior Manager Mmcoe Name Role Phone Bettina Cabrales MD Primary Care Provider [phone] Source Comments [facility],non-owned Affiliates and Associated Physician Practices is amultiple site organization consisting of ambulatory clinics and hospital sitesin [place], [place], [place] and [place]. This disclosure is being madepursuant to the Care Everywhere program and may not contain all information available regarding this patient. Last updated 18.[facility] Allergies No known active allergies Medications * [...] 13 Immunizations Immunization Administration Dates Next Due [employer] primary monoval ent 12+ yr 0.3mL Purple [...] 36.4 C (97.5 F) 09/14/2023 9:36 AM WIG COMBER Respiratory Rate 19 04/07/2013 1:00 AM CDT Oxygen Saturation 99% 04/07/2013 1:00 AM CDT Inhaled Oxygen Concentration - - Weight 106.6 kg (235 lb) 09/14/2023 9:36 AM WIG COMBER Height 161.3 cm (5' 3.5) 04/26/2023 2:38 PM CDT Body Mass Index 40.98 04/26/2023 2:38 PM CDT Plan of Treatment Health Maintenance Due Date Last Done Comments HIV SCREENING 12/13/2019 CHLAMYDIA/GONORRHEA SCREENING 2020 HEPATITIS C SCREENING 12/08/2022 COVID-19 VACCINE (2023-09 5 season) 2024 08/19/2021, 02/02/2021, 01/12/2021 DEPRESSION SCREENING 08/06/2024 09/14/2023, 04/26/20 23 INFLUENZA VACCINE (#1) 2025 , 06/06/2021, 07/05/2016 DTAP/TDAP/TD VACCINES (7 - T [...] 2:40 PM CDT) Elli Donovan MA Insurance [facility] Care Teams Senior Manager Mmcoe Relationship Specialty Start Date End Date Bettina Cabrales MD [address] [place] [id number] PCP - General Pediatrics 06/06/21
--- OUTSIDE RECORDS SUMMARY | 2025-04-08 00:44 | XMS_ITS | Clinical Summary ---
Author Organization [facility] Address [address] [place] [address] Care Team Providers Care Equipment Application Specialist Name Role Phone Unavailable Primary Care Provider Unavailabl e Social History Tobacco Use Types Packs/Day Years Used Date Smoking Tobacco: Never Assessed Comments Unknown Sex and Gender Information Value Date Recorded Sex Assigned at Not on file Legal Sex Female 11:36 AM BIOLOGICAL CHEMIST Gender Identity Not on file Sexual Orientation Not on file Plan of Treatment Health Maintenance Due Date Last Done Comments Hepatitis C Virus (HCV) Screening 2004 Meningococcal B Immunization (2 of 2 - Bexsero SCDM 2-dose series) 07/27/2021 01/25/2021 SARS-COV-2 Immunization (3 - season) 2024 02/02/2021, 01/12/2021 Influenza Immunization (#1) 2025 07/05/2016 Respiratory Syncytial Virus (RSV) Immunization (Adult) (1 [...]
--- OUTSIDE RECORDS SUMMARY | 2025-04-08 00:44 | XMS_ITS | Clinical Summary ---
Author Organization [facility] Address [address] [place] [address] Care Team Providers Care Product Safety Technical Assistant Name Role Phone Bettina Cabrales MD Primary Care Provider Benjamin Jewell MD Unavailable [phone] Brinda Cook PT Unavailable Unavailable Allergies No [...] (07/05/2022): Added automatically from request for surgery [id number] Closed fracture of left radius and ulna [...] on file Legal Sex Female 7:31 PM APPRAISAL ANALYST Gender Identity Female 08/16/2022 7:07 AM APPRAISAL ANALYST Sexual Orientation Straight 08/16/2022 7: 07 AM APPRAISAL ANALYST Obstetrics History Last Filed Vital Signs Vital Sign Reading Time Taken Comments Blood Pressure 147/93 08/14/2022 2:10 PM APPRAISAL ANALYST Pulse 103 08/14/2022 2:10 PM APPRAISAL ANALYST Temperature 36.7 C (98.1 F) 08/14/2022 1:06 PM APPRAISAL ANALYST Respiratory Rate 17 08/14/2022 2:10 PM APPRAISAL ANALYST Oxygen Saturation 99% 08/14/2022 2:10 PM APPRAISAL ANALYST Inhaled Oxygen Concentration - - Weight 100.9 kg (222 lb 7.1 oz) 08/14/2022 9:52 AM APPRAISAL ANALYST Height 162.5 cm (5' 3.98) 08/14/2022 9:52 AM CS T Body Mass Index 38.21 08/14/2022 9:52 AM APPRAISAL ANALYST Plan of Treatment Health Maintenance Due Date Last Done Comments Depression Screening 2004 Hepatitis C Screening 2004 Regular Well Visit/Exam 18-64 2022 Covid-19 Vaccine (4 2023-2 5 season) 2024 08/19/2021, 02/02/2021, 01/12/2021 Influenza Vaccine (#1) 2025 , 06/06/2021, 07/05/2016 DTaP/Tdap/Td Vaccine (7 - Td or Tdap) 05/01/2026 05/01/2016, 12/14/2009, 12/14/2009, Additional history exists Hepatitis B Screening Completed 06/23/2005 , 04/21/2005, 02/17/2005 Pneumococcal vaccine <65 Completed 016, 12/10/2006, 05/11/2006, Additional history exists Varicella Vaccines Completed 05/01/2016, 12/10/2006 HPV Vaccines Completed 11/01/2016, 06/08, 05/01/2016 Meningococcal Vaccine Completed 01/25/2021, 016 Meningococcal B Vaccine Completed 04/26/2023, 01/25 Medical Devices Implanted Type Area Therapist Device Identifier Shelf Expiration Date Model / Serial / Lot [employer]hew Endoscopy Screw 20mm 9mm 1.5mm Intfr Ti Cnn Rnd Hd Sft Thrd Crkscr Tip Softsilk Acl Pcl Strl [id number] - [id number] Implanted:Qty: 1 on 08/14/2022 by Benjamin Jewell MD at [facility] Right: Knee [employer] Endoscopy 12/15/2026 [id number] / / [id number] [employer] Endoscopy Softsilk 8mm 1.5mm 20mm Cannulated Round Acl Pcl Screw [id number] - [id number] Implanted:Qty: 1 on 08/14/2022 by Benjamin Jewell MD at [facility] Right: Knee [employer] Endoscopy 05/06/2027 [id number] / / [id number] Explanted Type Area Therapist Device Identifier Shelf Expiration Date Model / Serial / Lot [employer] Hua .062in 9in Trocar Point One End Orthopedic Wire [id number] - [id number] Explanted:Qty: 1 on 08/14/2022 by Benjamin Jewell MD at [facility] Right: Knee [employer] [id number] S / / Insurance [facility] Care Teams Product Safety Technical Assistant Relationship Specialty Start Date End Date Bettina Cabrales MD [address] [place] [address] PCP - General Pediatrics 06/19/22 Benjamin Jewell MD [address] [place] [address] Surgeon Pediatric Orthopedic Surgery 08/14/22 Brinda Cook, PT Physical Therapist Physical Therapy 02/28/23
--- OUTSIDE RECORDS SUMMARY | 2025-04-08 00:44 | XMS_ITS | Clinical Summary ---
Author Organization [facility] Address [address] [place] [address] Care Team Providers Care Entry Level Software Developer Name Role Phone Bettina Cabrales MD Primary Care Provider [phone] Medications No known medications Social History Tobacco [...] complete this topic Insurance MARITA Care Teams Entry Level Software Developer Relationship Specialty Start Date End Date Bettina Cabrales MD [address] [place] [address] PCP - General PEDIATRICS 07/06/21
[2025-04-08 01:40] VITALS: BP 118/65; PULSE 62; RESP 18; O2SAT 99
== END 2025-04-08 01:42 | disposition home or self-care (01) ==
PROVIDERS: Emergency Provider Physician Assistant
DX: S83.92XA Sprain of unspecified site of left knee, initial encounter (principal); X50.9XXA Other and unspecified overexertion or strenuous movements or postures, initial encounter; Y93.41 Activity, dancing
CPT/HCPCS: 73564; 99283; A9270